=== PATIENT | female | born 1945 | race Caucasian/White ===

== ENCOUNTER 2017-03-11 09:25 | Day surgery (SDC) | payer OTHER, MEDICARE ==
[2017-03-11] MEDS ORDERED: LIDOCAINE 1% 2 ML INJ ONE (10:05)
[2017-03-11] MEDS ORDERED: BUPIVACAINE 0.5% 30 ML SDV ONE (10:30)
[2017-03-11 10:46] LABS: ANION GAP 9 mEq/L (8-16); CALCIUM 9.2 mg/dL (8.5-10.4); CARBON DIOXIDE 25 mEq/l (22-31); CHLORIDE 106 mEq/L (97-110); CREATININE 0.7 mg/dL (0.6-1.0); GLOMERULAR FILTRATION RATE > 60; GLUCOSE 88 mg/dL (70-100); POTASSIUM 3.6 mEq/L (3.5-5.2); SODIUM 140 mEq/L (134-144)
[2017-03-11] MEDS ORDERED: LIDOCAINE 1% 30 ML SDV ONE (11:07)
[2017-03-11] MEDS ORDERED: fentaNYL 100 MCG/2 ML INJ ONE (11:12)
[2017-03-11] MEDS ORDERED: PROPOFOL/EMULSION 500 MG/50 ML BOTTLE IV ONE (11:13)
[2017-03-11] MEDS ORDERED: LIDOCAINE 2% 5 ML SDV ONE (11:26)
[2017-03-11] MEDS ORDERED: DEXAMETHASONE 4 MG/ML VIAL ONE (11:27)
[2017-03-11] MEDS ORDERED: PHENYLEPHRINE HCL 100 MCG/ML SYR ONE (11:28)
[2017-03-11] MEDS ORDERED: ONDANSETRON 4 MG/2 ML VIAL ONE (11:37)
--- NOTE | 2017-03-21 15:04 | GOP ---
[f rep st] OPERATIVE REPORT DATE OF OPERATION: 03/11/2017 SURGEON: Dajuan Camacho MD ANESTHESIA: Laryngeal mask anesthesia. PREOPERATIVE DIAGNOSIS: Right hip mass. POSTOPERATIVE DIAGNOSIS: Right hip mass. PROCEDURE PERFORMED: Excision of right hip mass. FINDINGS: Patient had a lipomatous mass without other abnormality. ESTIMATED BLOOD LOSS: 20 cc. INDICATIONS: A 71-year-old female with a history of a right hip mass. Risks and benefits of the pr ocedure were discussed the patient, questions were answered. She wished to proceed. DESCRIPTION OF PROCEDURE: Patient was in the supine position initially. After the induction of mookie quate laryngeal mask anesthesia, the patient was moved in modified left lateral decubitus position. She was then prepped and draped in the standard surgical fashion. 0.5% Marcaine was injected throu ghout the area for local anesthesia. Transverse incision was made with a #15 blade and carried down to the subcu tissue with Bovie cautery and blunt dissection. Blunt and sharp dissection were then used to excise the fatty mass. There were multiple lobulations and these were carefully excised. M ass was excised and sent for permanent section. The area was then palpated and no other lesions wer e identified. Wound was thoroughly irrigated. Hemostasis was achieved with cautery. The subcutaneous tissue was then approximated in layers using 3-0 Vicryl in interrupted fashion. The skin was closed with 4-0 M onocryl in a subcuticular stitch. Wound was sterilely dressed and the patient was returned to the s upine position and extubated. She was then taken to the PACU in stable condition. COMPLICATIONS: None. DRAINS: None. /[id number]/MODL
== END 2017-03-11 14:10 | disposition home or self-care (01) ==
LOC: FSGY 09:25
PROVIDERS: ATTEND Surgery
PROC: 0JBL0ZZ Excision of Right Upper Leg Subcutaneous Tissue and Fascia, Open Approach (ICD-10-PCS; principal; 2017-03-11 11:00)
DX: D17.23 Benign lipomatous neoplasm of skin and subcutaneous tissue of right leg (principal); E03.9 Hypothyroidism, unspecified; E78.5 Hyperlipidemia, unspecified; K21.9 Gastro-esophageal reflux disease without esophagitis
CPT/HCPCS: J1100; J2370; J2405; J2704; J3010

== ENCOUNTER → 2017-09-30 | Outpatient (CLI) | payer OTHER, MEDICARE | LOC: CIMAGING 10:07 | PROVIDERS: ATTEND Internal Medicine | DX: Z12.31 Encounter for screening mammogram for malignant neoplasm of breast (principal) | CPT/HCPCS: G0202 ==

== ENCOUNTER → 2017-12-08 | Outpatient (CLI) | payer OTHER, MEDICARE | LOC: CIMAGING 14:55 | PROVIDERS: ATTEND Podiatrist Foot & Ankle Surgery | DX: M19.071 Primary osteoarthritis, right ankle and foot (principal); M19.072 Primary osteoarthritis, left ankle and foot | CPT/HCPCS: 73630-PO ==

== ENCOUNTER → 2018-08-31 | Outpatient (CLI) | payer OTHER, MEDICARE | LOC: BMCIMAGING 10:52 | PROVIDERS: ATTEND Internal Medicine | DX: R06.09 Other forms of dyspnea (principal); R91.8 Other nonspecific abnormal finding of lung field ==

== ENCOUNTER → 2018-10-01 | Outpatient (CLI) | payer OTHER, MEDICARE | LOC: CIMAGING 07:34 | PROVIDERS: ATTEND Internal Medicine | DX: Z12.31 Encounter for screening mammogram for malignant neoplasm of breast (principal) ==

== ENCOUNTER → 2019-03-17 | Outpatient (CLI) | payer OTHER, MEDICARE | LOC: BMCIMAGING 11:33 | PROVIDERS: ATTEND Internal Medicine Rheumatology | DX: M17.12 Unilateral primary osteoarthritis, left knee (principal) ==